=== PATIENT | male | born 1955 | race Caucasian/White ===

== ENCOUNTER → 2020-03-20 11:18 | Outpatient (CLI) | payer OTHER, SELFPAY ==
[2020-03-22 21:00] LABS: COVID19 Sendout Not Detected (Not Detect)
== END ==
PROVIDERS: Visit Provider Physician Assistant
DX: Z11.59 Encounter for screening for other viral diseases (principal)
CPT/HCPCS: 87635

== ENCOUNTER 2020-03-23 08:56 | Day surgery (SDC) | payer OTHER, SELFPAY ==
[2020-03-16 08:51] VITALS: BMI 21.5
[2020-03-23] VITALS (17 sets, daily range): BP systolic 110–153; BP diastolic 62–86; PULSE 60–91; RESP 10–18; TEMP 36–36.9; O2SAT 97–100; BMI 21.5
--- NOTE | 2020-03-23 09:43 | DI.RAD.S_ITS ---
PROCEDURE: XR KNEE LT 1TO2V INDICATIONS: post op films TECHNIQUE: 2 view(s) of the knee acquired. COMPARISON: None. FINDINGS: Bones: Patient is status post knee joint arthroplasty. Hardware components are in expected positions. Visualized bony structures are intact. Soft tissues: Overlying postoperative changes are noted. IMPRESSION: Expected postoperative appearance Dictated by: Saul Byrd M.D. on 03/23/2020 at 15:35 Approved by: Saul Byrd M.D. on 03/23/2020 at 15:35
[2020-03-23] MEDS: ACETAMINOPHEN 325 MG TABLET 975 MG PO (10:00)
[2020-03-23] MEDS: CLINDAMYCIN 600 MG/50 ML PIGGYBACK 50 MG IV ×2 (10:00→11:05)
[2020-03-23] MEDS: CELECOXIB 200 MG CAPSULE PO (10:01)
[2020-03-23] MEDS: LACTATED RINGERS 1,000 ML 42 ML IV ×2 (10:03→12:54)
--- NOTE | 2020-03-23 10:27 | PM.OP.1 ---
Operative Date/Time/Diagnoses Date of procedure: 03/23/20 Time of procedure: 13:10 Pre-op diagnosis: left knee OA with partially correctable varus Post-op diagnosis: same Procedure & Clinicians Procedure: left TKA Same procedure as scheduled: Yes Indications: left knee OA with failure of conservative measures Surgeon: Cl Holt Special Services Supervisor: Sailaja Nicole Anesthesia Type: General and Spinal Operative Notes Findings: left knee OA with varus alignment Closure Type: primary Specimen(s): none sent Prosthetic devices, grafts, tissues, transplants, or devices: [employer]hew Journey 2 BCS left femur size 5 Journey non porous tibial base plate size 5 left Size 5-611 mm thick Journey to BCS constrained polyethylene 32 mm oval Suellen 2 patellar button Estimated Blood Loss (mL): 100 Blood products transfused: none Tourniquet time (min): 60 Procedure in detail: Patient was met in the preoperative holding area where the site and side of surgery marked by MD all last minute questions were answered. Informed consent had been reviewed and signed in clinic but was again reviewed in the preoperative holding area. Patient was then brought back in the operating room where he received a spinal anesthetic and then was transferred onto the operating room table. He was induced under general anesthesia. The left thigh had a nonsterile tourniquet placed followed by standard prepping of the left lower extremity. A surgical time-out was performed verifying site and side of surgery as well as the name of the patient. The leg was exsanguinated using an Esmarch. A midline incision was made approximately 10 cm in length see incision was made using a 10. Blade followed by electrocautery down to the extensor mechanism a new 10. Blade was then used to elevate medial and lateral flaps. The corner of the patella was then marked and a medial parapatellar arthrotomy was then performed. Patella was everted excess Hoffa's fat pad was removed. We then performed a medial peel of the MCL which was quite extensive concerning the Veress alignment of extremity. The lateral meniscus was then removed as well as ACL remnant stump. I next drilled for the femoral canal approximately 1 cm anterior and slightly medial to the midline. The intramedullary jersey was then placed with little resistance and the left-sided femoral cutting jig was then placed this was then drilled and backed off 2 mm to take a more conservative distal femoral cut. Oscillating saw was then used to make the femoral cut. Next I drilled for the intramedullary tibial component the tibial intramedullary jersey was then placed and the cutting jig for the tibia side was then placed. The cut was made just to make a skiming cut of the medial side due to varus alignment. A static extension block was then placed which was approximately 10 mm in thickness. Pins were then removed from the tibial side and femoral side. Then turned attention to the femoral side. [place] line was marked and the femur was sized to a size 5. Rotation was set with the cage point Nargis line and overall external rotation as compared to the epicondylar axis. This was then pinned in place and the anterior, posterior and chamfer cuts were made. A trial size 5 femur was then placed followed by a trial size 5 tibia and a 10 mm CS polyethylene was trialed. It was noted that the head lateral laxity and continued medial peel with a little bit of a reduction osteotomy was performed. We then trialed again and found the distal lateral laxity as compared to medial at this point I did 1 continue to peel the MCL in case I would cause instability. We elected to proceed witha PS femur which again was the option of a constrained polyethylene. The femoral box cut was then prepped. We then turned our attention to the patella and an oscillating saw was used to cut the patella and was sized to a size 32 mm was drilled for oval button. Trial button was then placed and brought through range of motion and patella set down nicely. The tibia was then marked for external rotation using a floating technique. Trial components were then removed the tibia was prepped and punched. The cut surfaces were then cleaned using pulse lavage and dried. Cement was then finger packed on the cut surface of the tibia as well as the undersurface of the tibial tray. Suction was then used to help increase cement penetration into the tibia. Tibial tray was then malleted into place. Excess cement was removed and then finger packed cement into the cut surface of the femur with exception of the posterior chamfer and the posterior cuts. Some was placed on the posterior feet of the femoral component this was malleted into place as well excess cement was removed a size 10 mm PS trial poly was then used during cement curing. The knee was brought into full extension and the ankle was held in internal rotation the patella was then cemented into place excess cement was removed and was clamped. The wound was then irrigated with Betadine which was allowed to sit for 5 minutes followed by copious irrigation with normal saline using pulse lavage. We allowed the cement to fully cure once this occurred we then brought the knee through range of motion clearing varus and valgus stress we then trialed a size 11 mm PS still had lateral laxity to some degree although much improved. We then elected to proceed with a size 11 mm thick constrained polyethylene. Local injection was infiltrated in the back of the knee as well as the periarticular tissues the final 5-6 left 11 mm thick constrained poly was then placed on the tibial tray and confirmed in the locking mechanism. Knee was brought through range of motion with excellent stability. The tourniquet was let down. The medial parapatellar arthrotomy was closed using 1. Vicryl interrupted fashion followed by running Quill suture followed by 2 Vicryl in the subcutaneous tissue followed by a running strata Fix dressing suture followed by dwermabond and Aquacel dressing. Complications: none Post-operative Condition: stable Disposition: PACU Plan for aftercare: Weightbearing as tolerated left lower extremity, aspirin 81 mg b.i.d. for 6 weeks, 24 hours of postop antibiotics.
--- NOTE | 2020-03-23 10:27 | PM.PREOP ---
Pre-operative Note COVID-19 COVID-19 status: Negative Result date/Date tested (Pos, Neg/Pending): 03/20/20 Interval Note History & Physical reviewed/Exam performed by Physician: Yes Changes to H&P: No H&P completed within 30 days and has changed as indicated here:: Plan for left TKA
[2020-03-23] MEDS: TRANEXAMIC ACID 1,000 MG VIAL 1000 MG INJ ×2 (11:30→12:55)
--- NOTE | 2020-03-23 11:43 | SUR.OPER ---
Supine on padded OR bed. Pillow under head, arms secured on padded armboards <90 degree abduction. Safety belt across torso. Non-operative leg secured with tape over blanket over lower leg. Operative leg secured in DeMayo/Wyatt positioner. Foam padded brace at thigh of operative leg.
[2020-03-23] MEDS: KETOROLAC 30 MG/ML VIAL IV (11:48)
[2020-03-23] MEDS: ROPIVACAINE 0.5% PF 5 MG/ML 20ML VIAL 60 ML INJ (11:48)
[2020-03-23] MEDS: MORPHINE 4 MG/ML INJ INJ (11:49)
--- NOTE | 2020-03-23 14:08 | PC.NURSE ---
Day shift: Pt on unit at approx 1405. Oriented to room and call light. PPP. Limited sensation and movement BLE's. Pt talking about going home later today. Denies any pain or nausea. Call light in reach. Agrees to not get OOB w/o help from staff. Tolerating SCD's. Tolerating ice water.
[2020-03-23] MEDS: LACTATED RINGERS 1,000 ML 100 ML IV (14:30)
[2020-03-23] MEDS: OXYCODONE IR 5 MG TABLET PO (14:33)
[2020-03-23] MEDS: ACETAMINOPHEN 325 MG TABLET 650 MG PO ×2 (14:34→21:05)
--- NOTE | 2020-03-23 15:30 | PT.IIE ---
Current Diagnoses Bilateral primary osteoarthritis of knee (03/23/20) Surgery Performed Operation Date: 03/23/20 11:00 Actual Procedures p Total Knee Arthroplasty(Left) - Cl Holt MD Surgical History (Last Updated 03/16/20 @ 09:15 by Aliyah Hurst, RN) History of vasectomy (Acute) Hx of knee surgery (Acute 1971) Hx of right inguinal hernia repair (Acute) Medical History (Last Updated 03/16/20 @ 09:15 by Aliyah Hurst RN) Diabetes type I (Acute) HLD (hyperlipidemia) (Acute) HTN (hypertension) (Acute) Physical Therapy Inpatient Evaluation/Re-Eval M1 PT/OT-IP Prior Functional Status Start: 03/23/20 16:22 Freq: NEEDED Status: Active Protocol: Document 03/23/20 15:30 AB (Rec: 03/23/20 16:42 AB [id number]) Medical Review Prior Functional Status Medical History Reviewed Yes Communication able to make needs known Mobility and Gait pt stated that he si independent with all mobilities and ambulation without AD; able to ride his bicycle 2-3 miles twice a day Social History Household Members spouse Living Arrangements House Number of Floors (Floors) One Floor Number of Stairs To Enter/Railing? no steps to enter Home Environment High Toilet,Walk in Shower Home Equipment Front Wheel Walker,Raised Toilet Seat w/Armrests,Shower Seat with Backrest,Grab Bars In Shower M2 PT-IP Current Condition Start: 03/23/20 16:22 Freq: NEEDED Status: Active Protocol: Document 03/23/20 15:30 AB (Rec: 03/23/20 16:42 AB [id number]) Physical Therapy Current Condition Current Condition Evaluation Date 03/23/20 Treatment Diagnosis s/p L TKA; difficulty in walking Onset Date 03/23/20 Weight Bearing Status Weight Bearing Status Weight Bear as Tolerated Allowed Weight Bearing Amount (enter % LLE WBAT or #) (%) M3 PT-IP Subjective Start: 03/23/20 16:22 Freq: NEEDED Status: Active Protocol: Document 03/23/20 15:30 AB (Rec: 03/23/20 16:42 AB [id number]) Subjective Physical Therapy Visit Type Type Initial Evaluation Visit Start Time 13:30 Visit Stop Time 16:18 Total Visit Minutes 48 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 of MACHINE 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 0 Physical Therapy Visit Comments Patient Comments agreeable to do PT Therapy Pain Assessment Pain When Pain Assessed At Rest Location Left Knee Intensity 2 Scale Used increase to 4-5/10 with movement Pain Management Techniques Modification of Treatment,Re- positioning,Timing of Activity with Medications M4 PT-IP Mobility and Gait Start: 03/23/20 16:22 Freq: NEEDED Status: Active Protocol: Document 03/23/20 15:30 AB (Rec: 03/23/20 16:42 AB [id number]) PT-Bed Mobility Assessment Supine to Sit Supine to Sit Standby Assistance Sit to Supine Sit to Supine Standby Assistance PT-Transfer Assessment Sit to and From Stand Sit to and from Stand Minimal Assistance,Moderate Assistance,1 Person Assistance ,Use of Upper Extremities Equipment Transfer Assistive Device Bed Rail,Front Wheeled Walker Orthotic/Prosthetic Devices or Brace: No Transfer Ability Level of Assist Contact Guard Assistance, Minimal Assistance,1 Person Assistance,Use of Upper Extremities Comments Mobility Comments BP: 131/77. pt agreed to do PT. pt stated that he can feel BLE but with just some numbness on L anterior thigh but able to bend knees. assess ROM and strength. pt with diffculty with knee flexion. completed heel slides with hold on end range. completed supine to sit SBA. pt was able to sit on EOB SBA. instructed with sit to stand . attempted but unable on first attempt. pt with increase lateral leaning and LOB on the R. instructed pt again and to use LLE. NAC in room to assist if needed. completed sit to stand min to mod A and cues. ambulated in room using FWW ~ 35 ftCGA to min A. presentes with unsteady gait with decrease step width. pt stated that B feet full sensation are not back yet. pt went back to bed . completed sit to supine SBA . positioned pt in bed. call light and table placed within reach. Gait Assessment Gait Gait Assistance Required: Contact Guard Assist,Minimum Assistance Distance (Feet) 35 Able to Maintain Weight Bearing Status Yes During Gait Assistive Devices Assistive Device Gait Belt,Front Wheeled Walker Orthotic/Prosthetic Devices or Brace: No Gait Deviations General Gait Pattern Antalgic,Decreased Stride Length,Decreased Feet Clearance,Step-to Gait Factors Limiting Gait Function Factors Limiting Gait Function Decreased Activity Tolerance, Decreased Sensation,Decreased Strength,Limited Range of Motion,Pain,Poor Balance,Poor Safety Awareness PT-Balance Assessment Sitting Balance and Reactions Static Sitting Balance Ability Good Dynamic Sitting Balance Ability Good Standing Balance and Reactions Static Standing Balance Ability Fair Dynamic Standing Balance Ability Fair Device Used FWW M5 PT-IP Objective Assessments Start: 03/23/20 16:22 Freq: NEEDED Status: Active Protocol: Document 03/23/20 15:30 AB (Rec: 03/23/20 16:42 AB [id number]) Orientation Orientation/Cognition Level of Alertness Alert Orientation Name,Place,Situation Language Function Ability No Deficits Noted Safety Awareness Decreased Safety Awareness Gross Range of Motion Lower Extremity ROM Assessment Left Impaired Impairments PROM: L knee flexion: ~ 60 deg L knee catches/clunks with PROM and AROM on knee flexion Strength Lower Extremity Strength Assessment Left Impaired Hip 4-/5 Knee 3+/5 Coordination Assessment Gross Coordination Gross Coordination WNL Sensation Assessment Sensation Light Touch Impaired Proprioception (Position) Impaired Sensation Description Numbness Comments Sensation Comments B feet and L anterior thigh M6 PT-IP Treatment Start: 03/23/20 16:22 Freq: NEEDED Status: Active Protocol: Document 03/23/20 15:30 AB (Rec: 03/23/20 16:42 AB [id number]) Physical Therapy Treatment Exercises Exercises Heel Slides Education Education Provided Precautions,Weight Bearing Status,Post-Op Packet,Safety M7 PT-IP Assessment and Plan Start: 03/23/20 16:22 Freq: NEEDED Status: Active Protocol: Document 03/23/20 15:30 AB (Rec: 03/23/20 16:42 AB [id number]) PT Summary Assessment and Plan Potential Rehabilitation Potential Good Status of Condition at Evaluation Evolving Summary Impairments Pain,ROM,Strength,Balance, Sensation,Bed Mobility, Transfers,Gait,Activity Tolerance Assessment Summary pt requiring CGA to mod A with mobility. Pt just had surgery this morning and has not have full sensation back on BLE and is affecting mobility and safety. pt will likely progress during hospital stay. pt plans to go home and spouse to assist him . pt stated that he is set up for out pt PT. Goals Bed Mobility Goal Independent Transfer Goal Independent,Front Wheeled Walker Gait Goal Independent,Front Wheel Walker Gait Distance 250 Days to Meet Goals 3 Frequency of Treatment Frequency Of Treatment Twice a Day Treatment Plan Physical Therapy Treatment Plan Bed Mobility Training,Transfer Training,Gait Training, Therapeutic Exercise,Balance Retraining,Post Op Education, Discharge Planning,Hot or Cold Pack,Neuromuscular Re-ed, Coordination Retraining,Manual Therapy Other Recommendations and Next Treatment ambulation Focus Recommendations To Nursing Amount of Assist Needed 1 Person Assist Discharge Recommendations PT Discharge Recommendations Home with Assistance, Outpatient PT Transportation Needs at Discharge Private Vehicle
--- NOTE | 2020-03-23 16:23 | PC.NURSE ---
Addendum entered by Josselyn Willard R.N. 03/23/20 23:15: IVF continue as per orders. Stable post op course. Call light w/in reach, bed alarm on for pt safety. Continue w/plan of care. Addendum entered by Josselyn Willard R.N. 03/23/20 23:14: Pt had uneventfule evening. Denies discomfort. Original Note: Pt awake, denies discomfort. Lungs clear, SpO2 98% RA Dsg to left knee CDI. Ambulated w/PT in room. IVF of LR infusing into the LFA @ 100cc/hr via pump w/o incidence. Stable post op course. Call light w/in reach, pt calls appropriately for need.
[2020-03-23] MEDS: INSULIN ASPART 100 UNIT/ML INSULN PEN SUBCUT ×2 (16:31→21:09)
[2020-03-23] MEDS: lisinopriL 10 MG TABLET PO (16:33)
[2020-03-23 18:41] LABS: Add Manual Diff / Slide Review NO; Basophils Absolute Auto 100 /uL (0-100); Basophils Percent Auto 0.4 % (0-2); Eosinophils Absolute Auto 0 /uL (0-450); Eosinophils Percent Auto 0.2 % (2-4); Hematocrit 36.3 % (41-53); Hemoglobin 12.1 g/dL (13.5-17.5); Lymphocytes Absolute Auto 1200 /uL (1100-4500); Lymphocytes Percent Auto 8.7 % (25-40); Mean Corpuscular HGB Conc 33.3 % (30-36); Mean Corpuscular Hemoglobin 32.1 PG (26-34); Mean Corpuscular Volume 96.5 fL (80-100); Monocytes Absolute Auto 1100 /uL (0-900); Neutrophils Absolute Auto 11500 /uL (1500-7000); Neutrophils Percent Auto 82.7 % (50-75); Platelet Count 186 X10^3/uL (150-400); Red Blood Cell Count 3.76 X10^6/uL (4.5-5.9); Red Cell Distribution Width 13.1 % (11.6-14.8); White Blood Cell Count 13.9 X10^3/uL (4.5-11.0)
[2020-03-23] MEDS: DOCUSATE 100 MG CAPSULE PO (21:05)
[2020-03-23] MEDS: ASPIRIN EC 81 MG TABLET PO (21:05)
[2020-03-23] MEDS: CLINDAMYCIN 900 MG/50 ML PIGGYBACK 50 MG IV (21:18)
[2020-03-24] MEDS: OXYCODONE IR 5 MG TABLET PO ×3 (00:50→09:20)
[2020-03-24] MEDS: LACTATED RINGERS 1,000 ML 100 ML IV (01:42)
[2020-03-24] MEDS: INSULIN GLARGINE 100 UNIT/ML 3ML PEN 18 UNIT SUBCUT (01:44)
[2020-03-24] MEDS: CLINDAMYCIN 900 MG/50 ML PIGGYBACK 50 MG IV (03:03)
[2020-03-24 03:29] VITALS: BP 128/74; PULSE 77; RESP 18; TEMP 36.2; O2SAT 96
[2020-03-24 05:38] LABS: Hematocrit 32.7 % (41-53); Hemoglobin 11.1 g/dL (13.5-17.5)
[2020-03-24 07:32] VITALS: BP 131/75; PULSE 88; RESP 17; TEMP 36.8; O2SAT 96
--- NOTE | 2020-03-24 07:33 | P.DS_ITS ---
History of Present Illness History of Present Illness Date Patient Seen: 03/24/20 Time Patient Seen: 07:33 Chief complaint: OPB Narrative: Doing well. Pain controlled this am. Discharge Providers Provider Discharge Date: 03/24/20 Primary care physician: Eder Duckworth MD Consults: 03/23/20 09:43 Consult to Anesthesiology Routine Comment: Consulting Provider: Anesthesiologist Reason for consultation: Regional block for post operative pain control 03/23/20 14:01 Consult to Discharge Planning Routine Comment: Consult to Physical Therapy Evaluate & Treat Comment: Physician Instructions: postop TKA protocol Consult to Respiratory Therapy Evaluate & Treat Comment: Physician Instructions: Evaluate and treat Discharge provider: Cl Holt MD Summary Hospital Course Discharge Diagnosis: s/p left TKA Hospital Course: Patient was admitted for elective left TKA yesterday. Went well, pain is now controlled. Patient is working with PT. Plan to DC home today. Status at Discharge Cognitive/behavioral status at discharge: oriented Overall status at discharge: patient is back to baseline Time Spent with Patient Time spent: Less than 30 minutes Exam Vital Signs (past 8 hours): - 03/23/20 23:47 03/24/20 03:29 Temperature 98.2 F 97.1 F L Pulse Rate 67 77 Respiratory Rate 16 18 Blood Pressure 127/68 128/74 Pulse Oximetry 97 96 Oxygen Delivery Method Room Air Oxygen Flow Rate 0 Objective Labs Result Diagrams: 03/24/20 05:20 Labs: Laboratory Results - last 24 hr 03/23/20 03/24/20 18:28 05:20 WBC 13.9 H RBC 3.76 L Hgb 12.1 L 11.1 L Hct 36.3 L 32.7 L MCV 96.5 MCH 32.1 MCHC 33.3 RDW 13.1 Plt Count 186 Neut % (Auto) 82.7 H Lymph % (Auto) 8.7 L [place] % (Auto) 8.0 Eos % (Auto) 0.2 L Baso % (Auto) 0.4 Neut # (Auto) 65763 H Lymph # (Auto) 1200 [place] # (Auto) 1100 H Eos # (Auto) 0 Baso # (Auto) 100 Discharge Plan Discharge Plan Patient Disposition: Home Discharge comment: DC home when pain controlled and cleared by PT Discharge Med Rec/Prescriptions Prescriptions: New acetaminophen 325 mg Tablet 650 mg PO TID 14 Days Qty: 84 RF: 0 aspirin 81 mg Tablet,Delayed Release (Dr/Ec) 81 mg PO BID 42 Days Qty: 84 RF: 0 oxycodone 5 mg Tablet 5 mg PO Q3HR PRN (Reason: Pain, Moderate (4-6)) Qty: 50 RF: 0 Continued Lantus U-100 Insulin 100 unit/mL Solution 18 - 20 unit SUBCUT BEDTIME RF: 0 lisinopril 10 mg Tablet 10 mg PO QPM RF: 0 pravastatin 20 mg Tablet 20 mg PO DAILY RF: 0 insulin aspart U-100 [Novolog Flexpen U-100 Insulin] 100 unit/mL (3 mL) Insulin Pen 4 - 6 unit SUBCUT TID RF: 0 cholecalciferol (vitamin D3) [Vitamin D3] 50 mcg (2,000 unit) Tablet 50 mcg PO DAILY RF: 0 Discontinued ibuprofen 200 mg Capsule 400 mg PO Q6H PRN (Reason: Pain) RF: 0 Follow up/Referrals: Cl Holt MD [Physician] - 2 Weeks Discharge Orders: Discharge (Order); Ordered 03/24/20 Ordered By: Cl Holt Provider Discharge Instructions Diet: Carb-consistent/Diabetic Activity: WBAT LLE. Walk several times a day. Work on your at home exercises (heel slides, etc.). Work on getting the knee completely straight. Cold/Heat Therapy: ICE as needed to help with pain and swelling. Place a towel between the ice and your skin to prevent mcfadden. Skin/Wound/Dressing Care Dressing: Leave dressing in place until your post-op visit. OK to shower over the dressing. Blot dry aftedrward. Do not bathe or soak the dressing. Visit Report/Discharge Packet Instructions: DI for Knee Replacement Stand Alone Forms: Surgery Discharge Discharge Data Primary Care Provider: Eder Duckworth Attending Provider: Cl Holt Quality VTE Deep Vein Thrombosis/Pulmonary Embolism Present on Admission: No
[2020-03-24] MEDS: INSULIN ASPART 100 UNIT/ML INSULN PEN SUBCUT (08:09)
[2020-03-24] MEDS: DOCUSATE 100 MG CAPSULE PO (08:16)
[2020-03-24] MEDS: ASPIRIN EC 81 MG TABLET PO (08:16)
[2020-03-24] MEDS: PRAVASTATIN 20 MG TABLET PO (08:16)
[2020-03-24] MEDS: ACETAMINOPHEN 325 MG TABLET 650 MG PO (08:16)
--- NOTE | 2020-03-24 09:35 | PT.IPTN ---
Current Diagnoses Bilateral primary osteoarthritis of knee (03/23/20) Surgery Performed Operation Date: 03/23/20 11:00 Actual Procedures p Total Knee Arthroplasty(Left) - Cl Holt MD Physical Therapy Treatment Note M2 PT-IP Current Condition Start: 03/23/20 16:22 Freq: NEEDED Status: Discharge Protocol: Document 03/23/20 15:30 AB (Rec: 03/23/20 16:42 AB [id number]) Physical Therapy Current Condition Current Condition Evaluation Date 03/23/20 Treatment Diagnosis s/p L TKA; difficulty in walking Onset Date 03/23/20 Weight Bearing Status Weight Bearing Status Weight Bear as Tolerated Allowed Weight Bearing Amount (enter % LLE WBAT or #) (%) M3 PT-IP Subjective Start: 03/23/20 16:22 Freq: NEEDED Status: Discharge Protocol: Document 03/24/20 09:12 SP (Rec: 03/24/20 13:27 SP [id number]) Subjective Physical Therapy Visit Type Type Treatment Note Visit Start Time 09:12 Visit Stop Time 09:35 Total Visit Minutes 33 Notes in room for caregiver training and provided SBA to patient. Number of MAINTENANCE ANALYST Visits 1 Physical Therapy Visit Comments Patient Comments agreeable to work with PT Therapy Pain Assessment Pain When Pain Assessed At Rest Pain Present Pain Present Pain Reported Location Left Knee Intensity 2 Scale Used increase to 4-5/10 with movement Pain Management Techniques Modification of Treatment,Re- positioning,Timing of Activity with Medications M4 PT-IP Mobility and Gait Start: 03/23/20 16:22 Freq: NEEDED Status: Discharge Protocol: Document 03/24/20 09:12 SP (Rec: 03/24/20 13:27 SP [id number]) PT-Bed Mobility Assessment Supine to Sit Supine to Sit Independent Scooting Scooting to Edge of Bed Independent PT-Transfer Assessment Sit to and From Stand Sit to and from Stand Standby Assistance,Use of Upper Extremities Equipment Transfer Assistive Device Front Wheeled Walker Orthotic/Prosthetic Devices or Brace: No Transfers Transfer Destination Chair Transfer Technique pt ambulated using FWW Transfer Ability Level of Assist Standby Assistance,Use of Upper Extremities Comments Mobility Comments Pt instructional review of post op exercises: ankle pumps , heel slide using gait belt for AAROM self assist looped at foot approx 100 deg L knee flexion, quad set, SLR good demonstration. Completed supine to sitting I LLE himself with no UE support. donned gait belt, Sit to stand with LLE positioned out in front SBA provided by , cued for wt shifting for WB awareness and L quad facilitation pre gait activities. Pt was able to walk further in hallway approx 230 ft using FWW initally step to gait and lift positioning FWW but improved gait quality L knee flexion, heel toe step over step with continued forward pushing of FWW SBA with cuing for normalizing gait. When patient returned to the room step pivot backing up to chair and reaching back with slow descent LLE out in front, educated when tolerated and feels LLE stronger working toward feet side by side when sit <> standing. No reports of increased pain maintained 2/ 10 duirng mobility. Pt had call light and all needs in reach with in room when left. MAINTENANCE ANALYST recommending patient is safe to return home with to assist him as needed and follow up with outpatient PT when medically stable. Gait Assessment Gait Gait Assistance Required: Contact Guard Assist,Minimum Assistance Distance (Feet) 230 Able to Maintain Weight Bearing Status Yes During Gait Assistive Devices Assistive Device Gait Belt,Front Wheeled Walker Orthotic/Prosthetic Devices or Brace: No Gait Deviations General Gait Pattern Antalgic,Decreased Stride Length,Decreased Feet Clearance,Step-to Gait Factors Limiting Gait Function Factors Limiting Gait Function Decreased Activity Tolerance, Decreased Strength,Limited Range of Motion,Pain Comments Gait Comments See mobility comments Stair Climbing Assessment Comments Stair Climbing Comments No stairs at home, not needed to assess. PT-Balance Assessment Sitting Balance and Reactions Static Sitting Balance Ability Good Dynamic Sitting Balance Ability Good Standing Balance and Reactions Static Standing Balance Ability Good Dynamic Standing Balance Ability Good Device Used FWW M5 PT-IP Objective Assessments Start: 03/23/20 16:22 Freq: NEEDED Status: Discharge Protocol: Document 03/23/20 15:30 AB (Rec: 03/23/20 16:42 AB [id number]) Orientation Orientation/Cognition Level of Alertness Alert Orientation Name,Place,Situation Language Function Ability No Deficits Noted Safety Awareness Decreased Safety Awareness Gross Range of Motion Lower Extremity ROM Assessment Left Impaired Impairments PROM: L knee flexion: ~ 60 deg L knee catches/clunks with PROM and AROM on knee flexion Strength Lower Extremity Strength Assessment Left Impaired Hip 4-/5 Knee 3+/5 Coordination Assessment Gross Coordination Gross Coordination WNL Sensation Assessment Sensation Light Touch Impaired Proprioception (Position) Impaired Sensation Description Numbness Comments Sensation Comments B feet and L anterior thigh M6 PT-IP Treatment Start: 03/23/20 16:22 Freq: NEEDED Status: Discharge Protocol: Document 03/24/20 09:12 SP (Rec: 03/24/20 13:27 SP [id number]) Physical Therapy Treatment Exercises Exercises Ankle Pumps,Quad Sets,Heel Slides,Straight Leg Raises, Seated Knee Flexion/Extension Knee ROM Measurement 100 Education Education Provided Weight Bearing Status,Post-Op Packet,Safety M7 PT-IP Assessment and Plan Start: 03/23/20 16:22 Freq: NEEDED Status: Discharge Protocol: Document 03/24/20 09:12 SP (Rec: 03/24/20 13:27 SP [id number]) PT Summary Assessment and Plan Potential Rehabilitation Potential Good Status of Condition at Evaluation Evolving Summary Impairments Pain,ROM,Strength,Balance, Sensation,Bed Mobility, Transfers,Gait,Activity Tolerance Assessment Summary pt is I during bed mobility and SBA with standing mobility using FWW. Pt was able to demonstrate post op exercises with occasional cuing as needed. He was able ambulate further distance using FWW with education cuing for normalizing gait patterning and quality, see mobility comments. Pt is ok to go home and spouse to assist him when medically stable, stated that he is set up for out pt PT. Goals Bed Mobility Goal Independent Transfer Goal Independent,Front Wheeled Walker Gait Goal Independent,Front Wheel Walker Gait Distance 250 Days to Meet Goals 3 Frequency of Treatment Frequency Of Treatment Twice a Day Treatment Plan Physical Therapy Treatment Plan Bed Mobility Training,Transfer Training,Gait Training, Therapeutic Exercise,Balance Retraining,Post Op Education, Discharge Planning,Hot or Cold Pack,Neuromuscular Re-ed, Coordination Retraining,Manual Therapy Other Recommendations and Next Treatment ambulation Focus Recommendations To Nursing Amount of Assist Needed Standby Assistance Discharge Recommendations PT Discharge Recommendations Home with Assistance, Outpatient PT Transportation Needs at Discharge Private Vehicle
--- NOTE | 2020-03-24 10:33 | PC.NURSE ---
Patient is doing well this am. Dressing to l.knee is cdi, with aquacel and maria antonia wrap. He has been up with physical therapy and been discharged to go home. Given 1 oxycodone for pain. This has been helpful for discomfort.
--- NOTE | 2020-03-24 11:00 | CM.IDA ---
Initial DCP Assessment Note Patient is a 65 yo male, resident of [place]. Patient is POD#1 from knee surgery w/ Dr Holt. PCP: Eder Duckworth Payer: Florencio ETIENNE Met w/patient and spouse at bedside this morning, introduced role. DC order is in place pending clearance from therapy team. Patient and spouse are indp. and active and have prepared well to return home for patient's recovery. Both feel confident today about return home once evaluated further by PT. No needs identified from this MANPOWER DEVELOPMENT SPECIALIST MANAGER P: DC expected today, home w/spouse to assist and outpatient PT SARIKA Montez Discharge Planning/Care Management CM Discharge Assessment Start: 03/24/20 10:59 Freq: Status: Active Protocol: Document 03/24/20 10:59 JIMMY (Rec: 03/24/20 11:00 JIMMY [id number]) Discharge Planning Assessment Assigned Cvir Tech SARIKA Moran DPOA/Assigned Designee Name Maddie Heard, spouse Contact Information [phone] Advance Directives? Yes Advance Directives on File No History Provided By Patient,Significant Other Prior Living Arrangements House Household Members spouse Type of transportation used prior to Drives own vehicle admit Independent with ADL's Yes Is patient alert and oriented? Yes Barriers to Discharge No Discharge Plan Home Transportation Arrangement Family Referrals Initiated None needed
== END 2020-03-24 11:30 | disposition home or self-care (01) ==
LOC: OR 09:02 → AC 09:02
PROVIDERS: PCP Family Medicine; Referring Provider Orthopaedic Surgery Adult Reconstructive Orthopaedic Surgery; Visit Provider Orthopaedic Surgery Adult Reconstructive Orthopaedic Surgery
PROC: 0SRD0JZ Replacement of Left Knee Joint with Synthetic Substitute, Open Approach (ICD-10-PCS; CPT 27447; principal; 2020-03-23 11:00)
DX: M17.12 Unilateral primary osteoarthritis, left knee (principal); M21.162 Varus deformity, not elsewhere classified, left knee; E10.9 Type 1 diabetes mellitus without complications; Z79.4 Long term (current) use of insulin; I10 Essential (primary) hypertension; E78.5 Hyperlipidemia, unspecified
CPT/HCPCS: 27447; 36415; 73560; 82962; 85014; 85018; 85025; 97110; 97116; 97162; 97530; C1776; J1885; J2250; J2270; J2704; J3010

== ENCOUNTER → 2020-09-20 13:14 | Outpatient (CLI) | payer OTHER, SELFPAY ==
[2020-03-23 16:13] VITALS: BMI 21.5
[2020-09-20 14:53] LABS: COVID19 -Nasal RAPID Negative (Negative)
== END ==
PROVIDERS: PCP Family Medicine; Visit Provider Physician Assistant
DX: Z01.812 Encounter for preprocedural laboratory examination (principal); Z20.822 Contact with and (suspected) exposure to COVID-19
CPT/HCPCS: 87635

== ENCOUNTER 2020-09-22 07:09 | Day surgery (SDC) | payer OTHER, SELFPAY ==
[2020-03-23 16:13] VITALS: BMI 21.5
[2020-09-22] VITALS (16 sets, daily range): BP systolic 100–136; BP diastolic 54–89; PULSE 57–82; RESP 10–20; TEMP 36.3–36.9; O2SAT 94–100; BMI 22.9
--- NOTE | 2020-09-22 06:00 | DI.RAD.S_ITS ---
PROCEDURE: XR KNEE RT 1TO2V INDICATIONS: RIGHT KNEE POST OPERATIVE TECHNIQUE: 2 view(s) of the knee acquired. COMPARISON: [facility], CR, XR KNEE LT 1TO2V, 03/23/2020, 13:31. FINDINGS: Bones: Patient is status post knee joint arthroplasty. Hardware components are in expected positions. Visualized bony structures are intact. Soft tissues: Overlying postoperative changes are noted. IMPRESSION: Expected postoperative appearance Dictated by: Saul Byrd M.D. on 09/22/2020 at 16:53 Approved by: Saul Byrd M.D. on 09/22/2020 at 16:53
[2020-09-22] MEDS: ACETAMINOPHEN 325 MG TABLET 975 MG PO (07:47)
[2020-09-22] MEDS: PREGABALIN 75 MG CAPSULE PO (07:48)
[2020-09-22] MEDS: MELOXICAM 7.5 MG TABLET 15 MG PO (07:48)
--- NOTE | 2020-09-22 08:34 | PM.PREOP ---
Pre-operative Note COVID-19 COVID-19 status: Negative Result date/Date tested (Pos, Neg/Pending): 09/20/20 Interval Note History & Physical reviewed/Exam performed by Physician: Yes Changes to H&P: No H&P completed within 30 days and has changed as indicated here:: Plan for R TKA
[2020-09-22] MEDS: CLINDAMYCIN 600 MG/50 ML PIGGYBACK 50 MG IV (08:57)
[2020-09-22] MEDS: TRANEXAMIC ACID 1,000 MG VIAL 1000 MG INJ ×2 (09:10→10:31)
--- NOTE | 2020-09-22 09:16 | SUR.OPER ---
Supine on padded OR bed. Pillow under head, arms secured on padded armboards <90 degree abduction. Safety belt across torso. Non-operative leg secured with tape over blanket over lower leg. Operative leg secured in knee post positioner. Foam padded brace at thigh of operative leg.
[2020-09-22] MEDS: KETOROLAC 30 MG/ML VIAL IV (09:21)
[2020-09-22] MEDS: MORPHINE 4 MG/ML INJ INJ (09:21)
[2020-09-22] MEDS: ROPIVACAINE 0.5% PF 5 MG/ML 20ML VIAL 60 ML INJ (09:22)
--- NOTE | 2020-09-22 10:47 | P.OP_ITS ---
Operative Date/Time/Diagnoses Date of procedure: 09/22/20 Time of procedure: 10:47 Pre-op diagnosis: right knee OA Post-op diagnosis: same Procedure & Clinicians Procedure: right total knee arthroplasty Same procedure as scheduled: Yes Indications: right knee OA resistant to further conservative measures Surgeon: Cl Holt Market Researcher: Dharmesh Briseno Anesthesia Type: General and Spinal Operative Notes Findings: Right knee osteoarthritis with varus deformity and a large intra- articular loose body. Prosthetic devices, grafts, tissues, transplants, or devices: [employer]hew Journey 2 size 5 right BCS femur Size 5 right Journey tibial base plate Right size 5-610 mm drain to BCS 32 mm oval patellar button Estimated Blood Loss (mL): 200 Blood products transfused: none Tourniquet time (min): 55 Procedure in detail: Patient was met in the preoperative holding area where the site and side of surgery were marked by . All last minute questions were answered. Informed consent had been reviewed and signed in the clinic but was reviewed again the preoperative holding area. All last minute questions were answered. Patient was then brought back operating room were used to seat the spinal anesthetic was then placed supine on a table and a nonsterile tourniquet was placed on the right thigh the right lower extremity then prepped and draped in normal sterile fashion. A surgical time-out was performed verifying the site and side of surgery as well as the name of the patient. The leg was then exsanguinated using Esmarch the tourniquet was inflated to 250 mm of mercury. A longitudinal incision over the anterior aspect of the knee was made in the skin using 10. Blade. A new 10. Blade was then used to elevate medial and lateral flaps. A medial parapatellar arthrotomy was then performed. Hoffa's fat pad was then removed in a medial peel was performed the medial peel was quite large to the varus deformity of the knee. Lateral meniscus was then removed as well as the ACL and PCL. Nargis's line was then marked with Bovie and the starting point for our femoral intramedullary guide was then marked as well a drill was then used to enter the femoral canal as well as the tibial canal sequentially. Intramedullary jersey for the femur was then placed with this right-sided distal femoral cutting jig. This was then pinned and cut in a neutral position. Intramedullary jersey was then placed inside the tibia and a cut was made just deep enough to get underneath the sclerotic bone in the medial tibial plateau. This point and extension block was then placed which was 9 mm in length there was a little bit more tightness on the medial side last shot in a further medial peel at was performed with removal of some osteophytes. This point we had good extension gap. We then turned our attention to the femoral side used the gap certified income tax preparer and drilled for the 5 in 1 cutting block. Of metal ruler was then used to verify that there is external rotation of femoral component as compared to Whitesides line. Five in 1 block was then pinned and cut. A trial size 5 femur was then placed and the box was drilled and punched for. A size 5 tibia was then placed with a 9 mm polyethylene brought through range of motion. Which had full extension and good stability through mid flexion flexion range of motion. The patella was then freehand cut and sized to size 32 mm patella. This was then drilled in place. The knee was brought through range of motion the patella did lift up the small lateral release was performed which greatly improved the patellar tracking. Trial components removed after using the floating technique to marked tibial external rotation. The tibial tray was then placed and pinned into place and the drill and keel punch were then sequentially used. These components were then removed and local anesthetic was infiltrated in the posterior aspect of the knee as well as the periarticular soft tissues. Pulse lavage was used to cleanse the cut surface of the bone. Cement was then mixed and cement was then finger packed onto the cut surface of the tibia as well as in the keel hole. Cement was placed on the undersurface of the tibial component and this was malleted into place. Excess cement was removed. Neck is cement was finger packed onto the cut surface of the femur with exception of the posterior condylar cut. Femoral component had cement placed on the feet of the femoral component and this was then placed onto the distal femur. After being malleted into place excess cement was removed. A size 9 mm polyethylene trial was then placed in the knee was brought into full extension and ankle was held in internal rotation. Cement was then placed onto the cut surface of the patella and the patella was clamped into place. Excess cement was removed. At this point Betadine solution was then placed into the wound and the tourniquet was let down at 55 minutes of time. Once the cement was fully cured the knee was thoroughly irrigated with pulse lavage normal saline. I then trialed a size 10 mm thick the CS which had better stability this was then selected and placed verifying the medial and lateral tabs were fully seated. The medial parapatellar arthrotomy was then closed using 1. Vicryl interrupted fashion followed by running Quill suture followed by 2-0 Vicryl interrupted fashion subcutaneous layer and 3-0 running Stratafix followed by Dermabond and Aquacel dressing. Complications: none Post-operative Condition: stable Disposition: PACU Plan for aftercare: 24 hours post-op abx, [id number] BID for 6 weeks, WBAT RLE
--- NOTE | 2020-09-22 11:39 | SUR.PHASEI ---
Report to Sherley HAMPTON
[2020-09-22] MEDS: LACTATED RINGERS 1,000 ML 100 ML IV (12:14)
[2020-09-22] MEDS: INSULIN ASPART 100 UNIT/ML INSULN PEN SUBCUT ×3 (12:19→20:54)
--- NOTE | 2020-09-22 13:29 | PC.NURSE ---
pt AO and receptive to care. Arrive from PACU around 1145. Denying pain. SCD's on. LR infusing at 100/hr per orders. Ice pack and STALIN to right knee. Able to wiggle toes and has mild sensation to scattered areas on right foot. T2DM CBG at noon were 226 and administered 2 units. Tolerating solid foods without nausea. Has yet to get out of bed but prepared to use walker or urinal if needed.
[2020-09-22] MEDS: ACETAMINOPHEN 325 MG TABLET 650 MG PO ×2 (14:58→20:51)
--- NOTE | 2020-09-22 15:44 | PT.IIE ---
Current Diagnoses Unilateral primary osteoarthritis, right knee (09/22/20) Surgery Performed Operation Date: 09/22/20 08:45 Actual Procedures p Total Knee Arthroplasty(Right) - Cl Holt MD Surgical History (Last Updated 09/21/20 @ 15:47 by Marybel Jenkins, RN) History of total knee arthroplasty (~2019) History of vasectomy Hx of knee surgery (1971) Hx of right inguinal hernia repair Medical History (Last Updated 09/21/20 @ 15:49 by Marybel Jenkins, RN) Amputated finger Diabetes type I Former smoker HLD (hyperlipidemia) HTN (hypertension) Primary osteoarthritis of right knee Physical Therapy Inpatient Evaluation/Re-Eval M1 PT/OT-IP Prior Functional Status Start: 09/22/20 15:35 Freq: NEEDED Status: Active Protocol: Document 09/22/20 15:36 SAK (Rec: 09/22/20 15:44 SAK [id number]) Medical Review Prior Functional Status Medical History Reviewed Yes Diet/Fluid Consistency Regular Communication WNL Mobility and Gait WNL, no device Social History Household Members spouse Living Arrangements House Number of Floors (Floors) One Floor Number of Stairs To Enter/Railing? 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 PT-IP Current Condition Start: 09/22/20 15:35 Freq: NEEDED Status: Active Protocol: Document 09/22/20 15:36 SAK (Rec: 09/22/20 15:44 SAK [id number]) Physical Therapy Current Condition Current Condition Evaluation Date 09/22/20 Treatment Diagnosis s/p right TKA Weight Bearing Status Weight Bearing Status Weight Bear as Tolerated M3 PT-IP Subjective Start: 09/22/20 15:35 Freq: NEEDED Status: Active Protocol: Document 09/22/20 15:36 SAK (Rec: 09/22/20 15:44 SAK [id number]) Subjective Physical Therapy Visit Type Type Initial Evaluation Visit Start Time 14:50 Visit Stop Time 15:30 Total Visit Minutes 30 Number of MICROFILM CAMERA OPERATOR Visits 0 Physical Therapy Visit Comments Patient Comments Patient denies nausea, dizziness, pain mild on medications. Willing to participate in PT. Patient Goals to discharge home tomorrow Therapy Pain Assessment Pain When Pain Assessed At Rest Pain Present Pain Present Pain Reported Location right knee Description Aching M4 PT-IP Mobility and Gait Start: 09/22/20 15:35 Freq: NEEDED Status: Active Protocol: Document 09/22/20 15:[address] [facility] (Rec: 09/22/20 15:[address] [facility] [id number]) PT-Bed Mobility Assessment Supine to Sit Supine to Sit Independent PT-Transfer Assessment Sit to and From Stand Sit to and from Stand Contact Guard Assistance Equipment Transfer Assistive Device Gait Belt,Front Wheeled Walker Transfers Transfer Destination Bed Transfer Ability Level of Assist Contact Guard Assistance,Use of Upper Extremities Comments Mobility Comments cues to reach for bed instead of leave on wlaker Gait Assessment Gait Gait Assistance Required: Standby Assistance Distance (Feet) 40 Able to Maintain Weight Bearing Status Yes During Gait Assistive Devices Assistive Device Gait Belt,Front Wheeled Walker Orthotic/Prosthetic Devices or Brace: No Factors Limiting Gait Function Factors Limiting Gait Function Decreased Strength,Limited Range of Motion,Pain Comments Gait Comments Patient tended to hold right LE very stiff, some improvement with verbal cues and demonstration for relaxed knee. PT-Balance Assessment Sitting Balance and Reactions Static Sitting Balance Ability Normal Dynamic Sitting Balance Ability Normal Standing Balance and Reactions Static Standing Balance Ability Good Dynamic Standing Balance Ability Good M5 PT-IP Objective Assessments Start: 09/22/20 15:35 Freq: NEEDED Status: Active Protocol: Document 09/22/20 15:[address] [facility] (Rec: 09/22/20 15:[address] [facility] [id number]) Orientation Orientation/Cognition Level of Alertness Alert Orientation Name,Place,Situation Language Function Ability No Deficits Noted Safety Awareness Understands Safety Issues Memory Description No Deficits Noted Gross Range of Motion Upper Extremity ROM Assessment Within Functional Limits Lower Extremity ROM Assessment Within Functional Limits Impairments except right knee 5-85 Strength Lower Extremity Strength Assessment Within Functional Limits Knee except right knee s/p TKA Comments Strength Comments patient able to do SLR, LAQ independently Coordination Assessment Gross Coordination Gross Coordination WNL Sensation Assessment Sensation Gross Sensation WNL M6 PT-IP Treatment Start: 09/22/20 15:35 Freq: NEEDED Status: Active Protocol: Document 09/22/20 15:[address] [facility] (Rec: 09/22/20 15:[address] [facility] [id number]) Physical Therapy Treatment Exercises Exercises Ankle Pumps,Quad Sets,Heel Slides Knee ROM Measurement 5-85 Education Education Provided Weight Bearing Status,Safety M7 PT-IP Assessment and Plan Start: 09/22/20 15:35 Freq: NEEDED Status: Active Protocol: Document 09/22/20 15:36 [facility] (Rec: 09/22/20 15:44 [facility] [id number]) PT Summary Assessment and Plan Potential Rehabilitation Potential Excellent Status of Condition at Evaluation Stable Summary Impairments Pain,ROM,Strength,Gait Goals Bed Mobility Goal Independent Transfer Goal Independent Gait Goal Independent Gait Distance 150 Days to Meet Goals 2 Frequency of Treatment Frequency Of Treatment Twice a Day Treatment Plan Physical Therapy Treatment Plan Transfer Training,Gait Training,Post Op Education,Hot or Cold Pack,Neuromuscular Re -ed Recommendations To Nursing Amount of Assist Needed 1 Person Assist Discharge Recommendations PT Discharge Recommendations Home Other Discharge Recommendations patient already has OP PT scheduled to start 09/29/20 Transportation Needs at Discharge Private Vehicle
[2020-09-22] MEDS: OXYCODONE IR 5 MG TABLET PO ×2 (16:23→20:51)
[2020-09-22] MEDS: CLINDAMYCIN 900 MG/50 ML PIGGYBACK 50 MG IV (16:53)
[2020-09-22] MEDS: lisinopriL 10 MG TABLET PO (16:53)
[2020-09-22] MEDS: ASPIRIN EC 81 MG TABLET PO (20:51)
[2020-09-22] MEDS: DOCUSATE 100 MG CAPSULE PO (20:51)
[2020-09-22] MEDS: INSULIN GLARGINE 100 UNIT/ML 3ML PEN 18 UNIT SUBCUT (21:05)
[2020-09-22 21:09] LABS: Add Manual Diff / Slide Review NO; Basophils Absolute Auto 0 /uL (0-100); Basophils Percent Auto 0.2 % (0-2); Eosinophils Absolute Auto 0 /uL (0-450); Eosinophils Percent Auto 0.1 % (2-4); Hemoglobin 11.4 g/dL (13.5-17.5); Lymphocytes Absolute Auto 800 /uL (1100-4500); Lymphocytes Percent Auto 7.2 % (25-40); Mean Corpuscular HGB Conc 33.6 % (30-36); Mean Corpuscular Hemoglobin 32.4 PG (26-34); Mean Corpuscular Volume 96.4 fL (80-100); Monocytes Absolute Auto 900 /uL (0-900); Monocytes Percent Auto 8.9 % (3-14); Neutrophils Absolute Auto 8800 /uL (1500-7000); Neutrophils Percent Auto 83.6 % (50-75); Platelet Count 172 X10^3/uL (150-400); Red Blood Cell Count 3.53 X10^6/uL (4.5-5.9); Red Cell Distribution Width 13.6 % (11.6-14.8); White Blood Cell Count 10.5 X10^3/uL (4.5-11.0)
--- NOTE | 2020-09-23 00:07 | PC.NURSE ---
Addendum entered by Allison Ballard R.N. 09/23/20 02:34: 0200 Straight-catheterization procedure administered. Removed 460cc of yellow, clear urine. Upon removal of the catheter, at the very end of the catheter, was a very small blood clot/tissue that may have been previously obstructing the way. Pt tolerated procedure well. Informed him of plan to administer one dose of Flomax around 0700 and see if he is able to void thereafter. Addendum entered by Allison Ballard R.N. 09/23/20 01:34: 0130 Pt has been unable to void despite sitting vs. standing, coughing to open sphincter and use of warm blanket. Paged on-call provider, Dr. Hoyos who gives verbal permission to do another straight cath and also orders one dose of Flomax 0.4mg once in AM. Original Note: 2305 Received safe hand-off report. The patient is awake in bed, oriented x4, and actively doing his foot wave exercises. He has a left forearm PIV that has LR infusing at 100mL/h. He denies pain. Pk wrap is around the right knee and is C/D/I. Neurovascular signs are excellent, pulse is strong, movement and strength are at baseline per patient. Pt informs me of inability to void for evening shift and had to be straight-catheterized around 1800. He still does not feel the urge to void. I told him we would bladder scan him around 0000 and go from there. 0000 Bladder scan shows 359mL. Pt is attempting to void in urinal.
[2020-09-23] MEDS: CLINDAMYCIN 900 MG/50 ML PIGGYBACK 50 MG IV (01:18)
[2020-09-23] MEDS: OXYCODONE IR 5 MG TABLET PO ×2 (02:30→08:55)
[2020-09-23 03:00] VITALS: BP 117/58; PULSE 77; RESP 18; TEMP 37; O2SAT 96
[2020-09-23] MEDS: LACTATED RINGERS 1,000 ML 100 ML IV (04:45)
[2020-09-23 05:51] LABS: Hematocrit 29.5 % (41-53); Hemoglobin 10.1 g/dL (13.5-17.5)
[2020-09-23] MEDS: TAMSULOSIN 0.4 MG CAPSULE PO (06:51)
[2020-09-23 07:28] VITALS: BP 116/68; PULSE 98; RESP 15; TEMP 37.3; O2SAT 95
[2020-09-23] MEDS: PRAVASTATIN 20 MG TABLET PO (08:54)
[2020-09-23] MEDS: ACETAMINOPHEN 325 MG TABLET 650 MG PO (08:54)
[2020-09-23] MEDS: ASPIRIN EC 81 MG TABLET PO (08:54)
[2020-09-23] MEDS: DOCUSATE 100 MG CAPSULE PO (08:54)
[2020-09-23] MEDS: INSULIN ASPART 100 UNIT/ML INSULN PEN SUBCUT (09:14)
--- NOTE | 2020-09-23 09:20 | PM.PNPO.1 ---
Subjective Subjective Date Patient Seen: 09/23/20 Time Patient Seen: 09:20 Interval history: Postop day 1 status post right total knee arthroplasty with Dr. Holt. Patient has had urinary retention and has not voided yet this morning. He has not been up with physical therapy yet. His pain is well controlled with oxycodone and he has some at home. Exam Vital Signs (past 8 hours): - 09/23/20 03:00 09/23/20 07:28 Temperature 98.6 F 99.1 F Pulse Rate 77 98 H Respiratory Rate 18 15 Blood Pressure 117/58 L 116/68 Pulse Oximetry 96 95 Oxygen Delivery Method Room Air Oxygen Flow Rate 0 Narrative Exam Narrative: Patient sitting up in bed no acute distress. Alert orient x3. Calves soft, compressible, nontender bilaterally. Dressing on right knee is CDI. Sensation intact light touch throughout bilateral lower extremities. He is able to actively flex and extend his knee. Objective Labs Result Diagrams: 09/23/20 05:25 Labs: Laboratory Results - last 24 hr 09/22/20 09/23/20 20:55 05:25 WBC 10.5 RBC 3.53 L Hgb 11.4 L 10.1 L Hct 34.0 L 29.5 L MCV 96.4 MCH 32.4 MCHC 33.6 RDW 13.6 Plt Count 172 Neut % (Auto) 83.6 H Lymph % (Auto) 7.2 L Spencer % (Auto) 8.9 Eos % (Auto) 0.1 L Baso % (Auto) 0.2 Neut # (Auto) 8800 H Lymph # (Auto) 800 L Spencer # (Auto) 900 Eos # (Auto) 0 Baso # (Auto) 0 PFSH Medical History Amputated finger Diabetes type I Former smoker HLD (hyperlipidemia) HTN (hypertension) Primary osteoarthritis of right knee Surgical History History of total knee arthroplasty (~2019) History of vasectomy Hx of knee surgery (1971) Hx of right inguinal hernia repair Social History household members: spouse Smoking Status: Former smoker alcohol intake: current Assessment & Plan Post-op Postoperative Procedures: Procedures Operation Date: 09/22/20 08:45 Actual Procedures Side Surgeon p Total Knee Arthroplasty Right Cl Holt MD Patient mobilized with physical therapy today. Started on Flomax this morning. Will continue ASA for DVT prophylaxis. Continue current pain control. If patient is able to void today he can go home.
--- NOTE | 2020-09-23 10:36 | PT.IPTN ---
Current Diagnoses Unilateral primary osteoarthritis, right knee (09/22/20) Surgery Performed Operation Date: 09/22/20 08:45 Actual Procedures p Total Knee Arthroplasty(Right) - Cl Holt MD Physical Therapy Treatment Note M2 PT-IP Current Condition Start: 09/22/20 15:35 Freq: NEEDED Status: Active Protocol: Document 09/22/20 15:36 SAK (Rec: 09/22/20 15:44 SAK [id number]) Physical Therapy Current Condition Current Condition Evaluation Date 09/22/20 Treatment Diagnosis s/p right TKA Weight Bearing Status Weight Bearing Status Weight Bear as Tolerated M3 PT-IP Subjective Start: 09/22/20 15:35 Freq: NEEDED Status: Active Protocol: Document 09/23/20 10:02 CLB (Rec: 09/23/20 12:13 CLB [id number]) Subjective Physical Therapy Visit Type Type Treatment Note Visit Start Time 10:02 Visit Stop Time 10:36 Total Visit Minutes 34 Notes present Number of [employer] Visits 1 Physical Therapy Visit Comments Patient Comments Pt willing to participate with therapy. Patient Goals d/c home today Therapy Pain Assessment Pain When Pain Assessed At Rest Pain Present Pain Present Pain Reported Location right knee Intensity 3 Scale Used 5/10 after tx. Pain Management Techniques Apply Cold,Timing of Activity with Medications M4 PT-IP Mobility and Gait Start: 09/22/20 15:35 Freq: NEEDED Status: Active Protocol: Document 09/23/20 10:02 CLB (Rec: 09/23/20 12:13 CLB [id number]) PT-Bed Mobility Assessment Supine to Sit Supine to Sit Independent Sit to Supine Sit to Supine Independent PT-Transfer Assessment Sit to and From Stand Sit to and from Stand Standby Assistance Equipment Transfer Assistive Device Gait Belt,Front Wheeled Walker Transfers Transfer Destination Bed,Chair Transfer Ability Level of Assist Standby Assistance Comments Mobility Comments Pt performed ther ex in supine . Pt able to get to EOB IND. Pt stood with cues to push from bed. Pt ambulating in oliva ~230ft with step thru gait pattern, good foot clearance and stride length. Pt then returned to room sitting in chair performing heel slides with hold. Pt then transferred to bed SBA and returned to supine IND. Left pt in bed with all needs within reach and SCD's on, ice on right knee. Gait Assessment Gait Gait Assistance Required: Standby Assistance Distance (Feet) 230 Able to Maintain Weight Bearing Status Yes During Gait Assistive Devices Assistive Device Gait Belt,Front Wheeled Walker Orthotic/Prosthetic Devices or Brace: No Gait Deviations General Gait Pattern Antalgic Factors Limiting Gait Function Factors Limiting Gait Function Decreased Strength,Limited Range of Motion,Pain Comments Gait Comments see mobility section M5 PT-IP Objective Assessments Start: 09/22/20 15:35 Freq: NEEDED Status: Active Protocol: Document 09/22/20 15:36 SAK (Rec: 09/22/20 15:44 SAK [id number]) Orientation Orientation/Cognition Level of Alertness Alert Orientation Name,Place,Situation Language Function Ability No Deficits Noted Safety Awareness Understands Safety Issues Memory Description No Deficits Noted Gross Range of Motion Upper Extremity ROM Assessment Within Functional Limits Lower Extremity ROM Assessment Within Functional Limits Impairments except right knee 5-85 Strength Lower Extremity Strength Assessment Within Functional Limits Knee except right knee s/p TKA Comments Strength Comments patient able to do SLR, LAQ independently Coordination Assessment Gross Coordination Gross Coordination WNL Sensation Assessment Sensation Gross Sensation WNL M6 PT-IP Treatment Start: 09/22/20 15:35 Freq: NEEDED Status: Active Protocol: Document 09/23/20 10:02 CLB (Rec: 09/23/20 12:13 CLB [id number]) Physical Therapy Treatment Exercises Exercises Ankle Pumps,Quad Sets,Heel Slides,Straight Leg Raises, Supine Hip Abduction,Short Arc Quads,Passive Knee Extension Hang Knee ROM Measurement 5-85 Education Education Provided Weight Bearing Status,Safety M7 PT-IP Assessment and Plan Start: 09/22/20 15:35 Freq: NEEDED Status: Active Protocol: Document 09/23/20 10:02 CLB (Rec: 09/23/20 12:13 CLB [id number]) PT Summary Assessment and Plan Potential Rehabilitation Potential Excellent Status of Condition at Evaluation Stable Summary Impairments Pain,ROM,Strength,Gait Goals Bed Mobility Goal Independent Transfer Goal Independent Gait Goal Independent Gait Distance 150 Days to Meet Goals 2 Frequency of Treatment Frequency Of Treatment Twice a Day Treatment Plan Physical Therapy Treatment Plan Transfer Training,Gait Training,Post Op Education,Hot or Cold Pack,Neuromuscular Re -ed Recommendations To Nursing Amount of Assist Needed 1 Person Assist Discharge Recommendations PT Discharge Recommendations Home Other Discharge Recommendations patient already has OP PT scheduled to start 09/29/20 Transportation Needs at Discharge Private Vehicle
--- NOTE | 2020-09-23 12:11 | PC.NURSE ---
Discharge: Pt started flomax and was finally able to void x2. Given teaching on urinary retention. Tolerates diet w/out problems. Po pain meds are controlling pain. Seen by PA and given d/c instruction. Seen by PT and passed and received their instructions. D/c packet reviewed w/patient by Veronique Shelton. He had no questions when he left. D/c home via auto w/spouse.
--- NOTE | 2020-09-23 12:45 | CM.IDA ---
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 Rosa Kaba MSW
== END 2020-09-23 11:10 | disposition home or self-care (01) ==
LOC: OR 07:15 → AC 07:16
PROVIDERS: PCP Family Medicine; Referring Provider Orthopaedic Surgery Adult Reconstructive Orthopaedic Surgery; Visit Provider Orthopaedic Surgery Adult Reconstructive Orthopaedic Surgery
PROC: 0SRC0JZ Replacement of Right Knee Joint with Synthetic Substitute, Open Approach (ICD-10-PCS; CPT 27447; principal; 2020-09-22 08:45)
DX: M17.11 Unilateral primary osteoarthritis, right knee (principal); M21.161 Varus deformity, not elsewhere classified, right knee; E11.9 Type 2 diabetes mellitus without complications; Z79.4 Long term (current) use of insulin
CPT/HCPCS: 27447; 36415; 73560; 82962; 85014; 85018; 85025; 94760; 97110; 97116; 97161; C1776; J1885; J2250; J2270; J2274; J2405; J2704; J3010

== ENCOUNTER → 2021-10-03 08:44 | Outpatient (CLI) | payer OTHER, SELFPAY ==
[2020-09-22 13:03] VITALS: BMI 22.9
[2021-10-03 12:28] LABS: COVID19 -Nasal RAPID Negative (Negative)
== END ==
PROVIDERS: PCP Family Medicine; Visit Provider Family Medicine Sleep Medicine
DX: Z20.822 Contact with and (suspected) exposure to COVID-19 (principal)
CPT/HCPCS: 87635; C9803

== ENCOUNTER 2021-10-05 07:32 | Day surgery (SDC) | payer OTHER, SELFPAY ==
[2020-09-22 13:03] VITALS: BMI 22.9
[2021-09-21 13:57] VITALS: BMI 23.9
[2021-10-05] VITALS (9 sets, daily range): BP systolic 115–151; BP diastolic 63–85; PULSE 71–116; RESP 9–16; TEMP 36.3–36.6; O2SAT 94–99; BMI 23.5
--- NOTE | 2021-10-05 07:00 | DI.RAD.S_ITS ---
PROCEDURE: XR SHOULDER LT 1V INDICATIONS: post op total shoulder TECHNIQUE: 1 views of the shoulder were acquired. COMPARISON: None. FINDINGS: Bones: Patient is status post left shoulder athero plasty. Left shoulder alignment is anatomic. No fractures or dislocations. No suspicious bony lesions. Visualized ribs appear intact. Soft tissues: Expected postsurgical changes are seen in left shoulder soft tissue. IMPRESSION: Postop changes from left shoulder arthroplasty with anatomic shoulder alignment. Dictated by: Justino Martinez M.D. on 10/05/2021 at 12:16 Approved by: Justino Martinez M.D. on 10/05/2021 at 12:17
[2021-10-05] MEDS: ACETAMINOPHEN 325 MG TABLET 975 MG PO (07:56)
[2021-10-05] MEDS: PREGABALIN 75 MG CAPSULE PO (07:57)
[2021-10-05] MEDS: CELECOXIB 200 MG CAPSULE PO (07:57)
--- NOTE | 2021-10-05 08:17 | PM.PREOP ---
Pre-operative Note COVID-19 COVID-19 status: Negative Result date/Date tested (Pos, Neg/Pending): 10/03/21 Criteria for continued procedure: Increased loss of function, Continuing or worsening of significant or severe pain and Non-surgical alternatives not available or appropriate per current SOC Interval Note History & Physical reviewed/Exam performed by Physician: Yes Changes to H&P: No
--- NOTE | 2021-10-05 08:18 | P.OP_ITS ---
Operative Date/Time/Diagnoses Date of procedure: 10/05/21 Time of procedure: 11:41 Pre-op diagnosis: Left shoulder osteoarthritis Post-op diagnosis: same Procedure & Clinicians Procedure: Left total shoulder replacement Same procedure as scheduled: Yes Indications: The patient has had progressively worsening left shoulder pain with radiographic changes consistent with arthritis. Non-operative management has failed and the patient has requested total shoulder replacement. The risks, benefits and alternatives to surgery were discussed with the patient prior to proceeding. Risks discussed included, but were not limited to, failure to relieve pain, stiffness, infection, nerve damage, deep venous thrombosis, pulmonary embolism, stroke, coma, heart attack, permanent paralysis and , as well as the potential need for eventual revision of the prosthetic. Surgeon: Elpidio Garcia [employer] Equipment Mechanic: Vanessa Landin Click Yes if Unassisted: No Anesthesia Type: General, Peripheral nerve block and Local Operative Notes Findings: Significant osteoarthritic change of the glenohumeral joint with intact rotator cuff. Closure Type: primary Specimen(s): none sent Prosthetic devices, grafts, tissues, transplants, or devices: Prosthetics used in this procedure manufactured by the [employer] and included a canal sparing stem size 2, a neutral humeral neck with a 50 x 20 mm humeral head. There was also a 50 mm pegged all polyethylene E +glenoid. Applied: implant(s) Blood products transfused: none Procedure in detail: The patient was seen in the pre-operative area, where the patient identified the left shoulder as the operative site and this was marked with my initials. The patient received pre-operative antibiotics, underwent an interscalene block, and was taken to the operating room and placed on the operative table in the supine position. After satisfactory anesthesia, a full ?time out? was performed. The patient was repositioned in the ?beach chair? position using a dedicated positioner. All pressure points were well padded, and the knees were slightly bent to prevent tension on the sciatic nerves. The left arm was prepared from the fingers to the base of the neck with ChloroPrep in the usual fashion and draped through sterile drapes. An approximately 15 cm incision was created, starting at the clavicle above the coracoid process and extended towards the deltoid insertion. The deltopectoral interval was used to access the shoulder. The cephalic vein was taken medially. A self retaining retractor was placed. The upper centimeter of the pectoralis major tendon was released. The ?three sisters? were identified and cauterized. The axillary nerve was palpated and protected throughout the case. The biceps was released from its groove and tenodesed over the top of the pectoralis major tendon. The subscapularis was released from the lesser tuberosity with a subscapularis peel and tagged for later repair. The shoulder was dislocated and a cutting guide was used for the proximal humeral osteotomy in 30 degrees of retroversion. The proximal humerus was sized and a guide pin placed. The step Reamer was used followed by the central cannulated drill. A size 2 broach was then used. Proximal humeral protector was then placed. We then removed the self-retaining retractor and placed retractors to access the glenoid. The subscapularis was released with a ?360 degree release? with care being taken to protect the axillary nerve with the inferior portion of this procedure. The remnant of labrum and biceps stump were removed. The appropriate size reamer was chosen with the glenoid sizer, and the guide pin placed. The glenoid was appropriately reamed. The guide for the peripheral holes was used and the center hole enlarged. The trial glenoid was placed with good stability. We then cemented the final implant into place after irrigating the peg holes and drying them with thrombin-soaked Gelfoam. We returned our attention to the humerus, a trial humeral head was applied and a trial reduction performed. Stability was checked with 50% posterior translation with spontaneous reduction, 45? of external rotation at the side with subs capularis held in the repaired position and internal rotation to 70? in the ?scarecrow position?. This was felt to be satisfactory and the appropriate implants were opened. The humeral prosthetic was impacted into the humerus. The humeral head was applied when the stem was still slightly proud and impacted to both seat the head and fully seat the stem. The joint was relocated one final time. The joint was irrigated and the subscapularis repaired to the lesser tuberosity using an [employer] ?SpeedBridge? system. The top of the subscapularis was closed to the leading edge of the supraspinatus with a figure of 8 #2 Ethibond to close the rotator interval. The deltopectoral interval was closed with interrupted 0 Vicryl. There had been a partial laceration of the deltoid from the posterior retractor. This was repaired. Subcutaneous layer was closed with 3-0 Vicryl, and the skin with a running 3-0 V-Lock suture and Dermabond. An Aquacel Ag dressing was applied, the patient?s arm was placed in a sling, and the patient was taken to recovery having tolerated the procedure well. Complications: none Post-operative Condition: stable Disposition: PACU Plan for aftercare: The patient will be maintained on a standard total shoulder replacement protocol with passive range of motion limited to 90 degrees forward flexion, 0 degrees external rotation at the side, 0 degrees abduction and internal rotation to the body. The patient will receive aspirin and sequential compression devices for DVT prophylaxis. The patient will be discharged home when safe for the home environment.
[2021-10-05] MEDS: LACTATED RINGERS 1,000 ML 42 ML IV (08:57)
[2021-10-05] MEDS: CEFAZOLIN 2 GM/20 ML SYRINGE IV (09:50)
[2021-10-05] MEDS: TRANEXAMIC ACID 1,000 MG VIAL 1000 MG INJ ×2 (09:51→11:18)
--- NOTE | 2021-10-05 10:10 | SUR.OPER ---
Beach chair with Abiolan/Elan shoulder positioner. Lower body on padded OR bed. Head in foam padded head cradle, secured with straps. Non-operative arm secured <90 degrees abduction. Pillow under knees. Safety belt at thigh. Cloth tape over blanket over lower legs. Gel pad under heels.
[2021-10-05] MEDS: THROMBIN (RECOMBINANT) 5,000 UNIT VIAL 5000 UNIT TOP (10:37)
[2021-10-05] MEDS: EPINEPHrine 1 MG/ML 0.15 MG INJ (10:57)
[2021-10-05] MEDS: BUPIVACAINE 0.5% MDV 30 ML INJ (10:58)
[2021-10-05] MEDS: INSULIN LISPRO 100 UNIT/ML 3ML VIAL SUBCUT (12:47)
--- NOTE | 2021-10-05 12:47 | SUR.PREOP ---
Block start time [0905] . Monitoring initiated and maintained throughout procedure. Medications given by anesthesiologist instructions. Patient remained stable throughout procedure, no adverse reactions noted. Block end time [0915].
--- NOTE | 2021-10-05 13:31 | SUR.PHASEII ---
Anesthesia okay for patient to manage blood sugar at home and aware of bs 256. Pt aox4
== END 2021-10-05 14:05 | disposition home or self-care (01) ==
LOC: OR 07:37 → AC 11:28 → OR 11:29
PROVIDERS: PCP Family Medicine; Referring Provider Orthopaedic Surgery; Visit Provider Orthopaedic Surgery
PROC: (CPT 23472; principal; 2021-10-05 08:45)
DX: M19.012 Primary osteoarthritis, left shoulder (principal); E10.9 Type 1 diabetes mellitus without complications; Z79.4 Long term (current) use of insulin; I10 Essential (primary) hypertension
CPT/HCPCS: 23472; 64450; 73020; 82962; C1776; J0171; J0690; J1170; J1815; J2250; J2704; J3010